=== PATIENT | female | born 1985 | race Caucasian/White ===

== ENCOUNTER → 2017-03-11 | Outpatient (CLI) | payer BC ==
[2013-11-03 15:14] VITALS: BMI 28.8
[~2017-03-11] MED LIST: ACET-1718 PO; AMOX500T10 PO; CETI-176 PO; FERR-53 PO; IBUP800T37 PO; LOR5/325 PO; PRED20TA6 PO; RANI-324 PO; TRIA15CR40 TP
== END ==
LOC: LAB 09:20
PROVIDERS: ATTEND Nurse Practitioner
DX: J02.0 Streptococcal pharyngitis (principal)
CPT/HCPCS: 87070; 87077; 87186

== ENCOUNTER → 2017-03-30 | Outpatient (CLI) | payer BC ==
[2013-11-03 15:14] VITALS: BMI 28.8
== END ==
LOC: LAB 09:05
PROVIDERS: ATTEND Otolaryngology
DX: J02.0 Streptococcal pharyngitis (principal)
CPT/HCPCS: 87070

== ENCOUNTER → 2017-06-28 | Outpatient (CLI) | payer BC ==
[2013-11-03 15:14] VITALS: BMI 28.8
[~2017-06-28] MED LIST changes: +CEPH500C24 PO; -RANI-324 PO; +RANI-366 PO
[2017-06-28 13:58] LABS: PLATELET COUNT, AUTOMATED 230 K/uL (150-450)
== END ==
LOC: LAB 13:32
PROVIDERS: ATTEND Nurse Practitioner Primary Care
DX: R59.1 Generalized enlarged lymph nodes (principal)
CPT/HCPCS: 36415; 85025; 87081

== ENCOUNTER → 2017-08-01 | Outpatient (REF) | payer BC ==
[2013-11-03 15:14] VITALS: BMI 28.8
[2017-08-01 10:51] LABS: PLATELET COUNT, AUTOMATED 191 K/uL (150-450)
== END ==
PROVIDERS: ATTEND Family Medicine
DX: R53.83 Other fatigue (principal); M62.81 Muscle weakness (generalized)
CPT/HCPCS: 82040; 82247; 82310; 82374; 82435; 82565; 82947; 84075; 84132; 84155; 84295; 84443; 84450; 84460; 84520; 85025; 86140; 86788; 86789

== ENCOUNTER → 2017-08-09 | Outpatient (CLI) | payer BC ==
[2013-11-03 15:14] VITALS: BMI 28.8
[2017-08-09 15:10] LABS: PLATELET COUNT, AUTOMATED 356 K/uL (150-450)
== END ==
LOC: LAB 14:52
PROVIDERS: ATTEND Nurse Practitioner Primary Care
DX: R53.81 Other malaise (principal)
CPT/HCPCS: 36415; 82040; 82247; 82310; 82374; 82435; 82565; 82947; 84075; 84132; 84155; 84295; 84450; 84460; 84520; 85025; 86140

== ENCOUNTER → 2017-08-12 | Outpatient (CLI) | payer BC ==
[2013-11-03 15:14] VITALS: BMI 28.8
[~2017-08-12] MED LIST changes: +ALB18R INH; +AZIT-17 PO
--- NOTE | 2017-08-12 15:23 | RADIOLOGY IMAGING REPORT ---
FACILITY: [facility] [place] PATIENT NAME: Yuli Josue : 1985 MR: [id number] V: [id number] EXAM DATE: ORDERING PHYSICIAN: JAYSHREE PATRICK TECHNOLOGIST: Location: [facility] [place] Patient: Yuli Josue : 1985 Visit/Account:[id number] Date of Sevice: 08/12/2017 Exam type: CHEST PA AND LAT History: cough, chest congestion Comparison: None. Findings: There is a patchy infiltrate in the left lower lobe. The right lung is free of consideration. There is no evidence of pleural effusions. The cardiac silhouette is normal in size IMPRESSION: 1. Patchy infiltrate in the left lower lobe consistent with pneumonia Report Dictated By: Alyson Reed MD at 08/12/2017 2:23 PM Report E-Signed By: Alyson Reed MD at 08/12/2017 2:49 PM WSN:[email or web address]
== END ==
LOC: RAD 13:41
PROVIDERS: ATTEND Nurse Practitioner Family
DX: R91.8 Other nonspecific abnormal finding of lung field (principal)
CPT/HCPCS: 71046

== ENCOUNTER → 2017-10-29 | Outpatient (CLI) | payer BC ==
[2013-11-03 15:14] VITALS: BMI 28.8
[~2017-10-29] MED LIST changes: +PREN1TAB44
[2017-10-29 11:25] LABS: PLATELET COUNT, AUTOMATED 240 K/uL (150-450)
== END ==
LOC: LAB 08:25
PROVIDERS: ATTEND Student in an Organized Health Care Education/Training Program
DX: Z34.91 Encounter for supervision of normal pregnancy, unspecified, first trimester (principal)
CPT/HCPCS: 36415; 81001; 85025; 86592; 86703; 86762; 86850; 86900; 86901; 87088; 87340

== ENCOUNTER → 2018-01-06 | Outpatient (CLI) | payer BC ==
[2013-11-03 15:14] VITALS: BMI 28.8
--- NOTE | 2018-01-06 16:27 | RADIOLOGY IMAGING REPORT ---
[place] [facility] [place]: Yuli Josue : 1985 MR: [id number] V: [id number] EXAM DATE: ORDERING PHYSICIAN: BONY EDWARDS TECHNOLOGIST: Location: [facility] [place] Patient: Yuli Josue : 1985 Visit/Account:[id number] Date of Sevice: 01/06/2018 EXAMINATION: Transabdominal OB Ultrasound >14 wks with Anatomic Survey 01/06/2018 9:00 AM History: anatomical survey COMPARISON: None FINDINGS: Intrauterine gestations: one presentation: Variable heart rate: 152 bpm Amniotic fluid index: 13.5 cm Largest amniotic fluid pocket 3.9 cm Placenta: Posterior without previa. Placental cord insertion is not well-defined. Uterus: gravid, otherwise normal Maternal adnexa: negative Cervix: closed Gestational Parameters: BPD: 4.5 cm 19 weeks 5 days , 30th percentile HC: 17.7 cm 20 weeks 2 days , 43rd percentile AC: 15.1 cm 20 weeks 3 days , 51st percentile FL: 3.2 cm 20 weeks 1 day , 39th percentile Average ultrasound age (AUA): 20 weeks 1 day Estimated gestational age by LMP: 20 weeks 1 day Estimated weight (EFW): 338 grams +/- 50 grams EFW for LMP percentile: 48 Anatomic Survey: Intracranial structures, nose and lips, 4-chamber heart and outflow tracts, stomach, kidneys, urinary bladder, spine, 3-vessel cord and cord insertion are unremarkable. Two upper and two lower extremiti es visualized. IMPRESSION: 1. Single live intrauterine gestation; estimated ultrasound age 20 weeks 1 day (ARDEN 05/25/2018) which m atches clinical dates. 2. Unremarkable anatomic survey. Report Dictated By: Fito Bernal MD at 01/06/2018 4:17 PM Report E-Signed By: Fito Bernal MD at 01/06/2018 4:22 PM WSN:[email or web address]
== END ==
LOC: RAD 08:55
PROVIDERS: ATTEND Student in an Organized Health Care Education/Training Program
DX: Z34.92 Encounter for supervision of normal pregnancy, unspecified, second trimester (principal); Z3A.20 20 weeks gestation of pregnancy

== ENCOUNTER → 2018-03-03 | Outpatient (CLI) | payer BC ==
[2013-11-03 15:14] VITALS: BMI 28.8
[~2018-03-03] MED LIST changes: +DIPH0.5D12 IM
[2018-03-03 10:04] LABS: PLATELET COUNT, AUTOMATED 164 K/uL (150-450)
== END ==
LOC: LAB 07:59
PROVIDERS: ATTEND Student in an Organized Health Care Education/Training Program
DX: Z34.92 Encounter for supervision of normal pregnancy, unspecified, second trimester (principal)
CPT/HCPCS: 36415; 82950; 85025

== ENCOUNTER → 2018-04-26 | Outpatient (CLI) | payer BC ==
[2013-11-03 15:14] VITALS: BMI 28.8
== END ==
LOC: LAB 08:51
PROVIDERS: ATTEND Student in an Organized Health Care Education/Training Program
DX: Z36.85 Encounter for antenatal screening for Streptococcus B (principal)
CPT/HCPCS: 87081

== ENCOUNTER 2018-05-30 15:42 | Inpatient (IN) | payer BC ==
[~2018-05-30] VITALS: Ht 170.2 cm; Wt 85.7 kg
[~2018-05-30 15:42] MED LIST changes: -DIPH0.5D12 IM; +DIPH0.5S2 IM
[2018-05-30 16:40] VITALS: BP 120/66; Ht 170.2 cm; Wt 85.7 kg
[2018-05-30] MEDS ORDERED: FAMOTIDINE(*) 20MG/50ML PREMIX 50 ML IVPB PRN (20:54)
[2018-05-30] MEDS ORDERED: ceFAZolin(*) 2GM/D5W 50ML 50 ML IVPB PRN (20:54)
[2018-05-30] MEDS ORDERED: OXYTOCIN 30 UNIT/D5LR 500 ML 500 ML IV PRN (20:54)
[2018-05-30] MEDS ORDERED: fentaNYL CITR 100 MCG/2 ML AMP IVP PRN (20:55)
[2018-05-30] MEDS ORDERED: LIDOCAINE 1% LOCAL 300 MG/30ML INJ PRN (20:55)
[2018-05-30] MEDS ORDERED: METOCLOPRAMIDE 10 MG/2 ML SDV IVP PRN (20:55)
[2018-05-30 21:32] LABS: PLATELET COUNT, AUTOMATED 172 K/uL (150-450)
--- NOTE | 2018-05-30 22:27 | History & Physical ---
History of Present Illness Age of Patient: 33 : 6 Para or TPAL: 5 EDC per U/S: May 25, 2018 Estimated Gestational Age: 40.5 Chief Complaint Contractions History of Present Illness Pt is a 33 y/o @ 40-5/7 wga female by a 9 wk sono who presents to L&D with a chief complaint of painful contractions. Pt reports her contractions have been happening all night. Reports contractions every 5 minutes. No loss of amniotic fluid. No vaginal bleeding. Good movement. History Patient's Blood Type: A Positive Rubella Status: Immune Group B Strep Screen: Negative Obstetrical History: Prior c/s X 1 X 4. Past Medical History: Non contributory Allergies: Uncoded Allergies: Hayfever (Allergy, Mild, 03/03/17) Social History: Denies X 3 Family History: FH: cancer Grandparent FH: diabetes mellitus Grandparent FH: heart disease Grandparent FH: stroke Grandparent Med Rec Home Meds Reported Medications Vit No.124/Iron/FA ( Vitamin Tablet) Unknown Strength Tablet 10/29/17 Review of Systems All Systems Reviewed/Normal: Yes, Except as Noted Constitutional: No Fever, No Weight Loss, No Weight Gain, No Chills, No Night Sweats, No Other Neurological: No Syncope, No Confusion, No Weakness, No Dizziness, No Slurred Speech, No Other Eyes: No Vision Change, No Loss of Vision, No Photophobia, No Other ENT: No Hearing Loss, No Sinus Congestion, No Sore Throat, No Ear Ache, No Tinnitus, No Other Cardiovascular: No Chest Pain, No Palpitations, No Orthostatic Hypotension, No Other Respiratory: No Shortness of Breath, No Cough, No Wheezing, No Other Gastrointestinal: No Nausea, No Vomiting, No Diarrhea, No Dysphagia, No Constipation, No Early Satiety, No Hematemesis, No Hematochezia, No Melena, No Abdominal Pain, No Other Genitourinary: No Dysuria, No Hematuria, No Urinary Incontinence, No Other Musculoskeletal: No Pain, No Sprain, No Strain, No Impaired Mobility, No Other Psychiatric: No Depression, No Anxiety, No Other Exam General Exam Vital Signs Vital Signs Date Time Temp Pulse Resp B/P (MAP) Pulse Ox O2 Delivery O2 Flow Rate FiO2 05/30/18 16:40 98.2 82 14 120/66 (84) 95 Room Air General Apperance: Alert/Awake/No Acute Distress Neuro: No Gross deficits Eyes: Normal Extraocular Movement & Vison, PERRLA ENT: Normal Cardiovascular: Regular Rate and Rhythm Respiratory: No Respiratory Distress Abdomen: Soft, Non-Tender, Non-Distended : Normal Musculoskeletal: No Weakness/Pain Extremities: No Cyanosis,Clubbing or Edema Integumentary: Skin Intact without Lesions or Rash Psychological: Alert & Oriented X3, Appropriate Mood & Affect Vaginal Discharge/Fluid?: Clear Fluid (with amniotomy) Cervical Dialation: 4 Cervical Effacement (%): 70 Cervical Consistency: Soft Cervical Position: Anterior Station: -2 Presentation: Vertex Uterine Contractions(Q min): 5 Uterine Contraction Strength: Mild UC Resting Tone: Soft Fetus Feeling Movement?: Yes Heart Tones: 130 Heart Tone Variabilty: Moderate FHT Accelerations: 15X15 FHT Decelerations: None FHT Category: I Medical Decision Making Data Points Result Diagram: 05/30/182110 Pre-Admit Course Medical Record Review: Yes VTE Prophylasis: Adult Deep Vein Thrombosis/Pulmonary: No Assessment and Plan 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 Expect patient to transition to active labor. If need be will augment with Oxytocin. (2) 40 weeks gestation of Status: Acute (3) Hx successful (vaginal after ), currently Status: Acute (4) Active labor at term Status: Resolved BONY EDWARDS DO May 30, 2018 22:27
[2018-05-31] MEDS: LR(*) 1000 ML BAG 1,000 ML IV PRN ×2 (02:00→06:00)
--- NOTE | 2018-05-31 07:37 | Labor Progress Note ---
Labor Subjective Progress Notes Subjective Starting to get more and more pressure. Feeling Movement?: Yes Vaginal Discharge/Fluid: Clear Fluid Labor Pain: Mild Neurological: No Headache, No Other Eyes: No Visual Disturbances Labor Objective Vital Signs Vital Signs Date Time Temp Pulse Resp B/P (MAP) Pulse Ox O2 Delivery O2 Flow Rate FiO2 05/30/18 16:40 98.2 82 14 120/66 (84) 95 Room Air Vaginal Discharge/Fluid?: Clear Fluid Cervical Dialation: 6 Cervical Effacement (%): 80 Cervical Consistency: Soft Cervical Position: Mid Presentation: Vertex Uterine Contractions(Q min): 3 Uterine Contraction Strength: Moderate Fetus Heart Tones: 130 Heart Tone Variabilty: Moderate FHT Accelerations: 15X15 FHT Decelerations: None FHT Category: I Other Result Diagram: 05/30/182110 Assessment and Plan Problems: (1) Desires (vaginal after ) trial Status: Acute (2) 40 weeks gestation of Status: Acute (3) Hx successful (vaginal after ), currently Status: Acute Assessment & Plan: Now on Oxytocin. Expect patient to progress to complete. (4) Active labor at term Status: Resolved BONY EWDARDS DO May 31, 2018 07:37
[2018-05-31] MEDS ORDERED: MAGNESIUM HYDROXIDE* 30ML UDCP PO PRN (09:05)
[2018-05-31] MEDS ORDERED: LANOLIN OINT 7 GM TUBE TP PRN (09:05)
[2018-05-31] MEDS ORDERED: BENZOCAINE 20% 60 ML BTL TP PRN (09:05)
[2018-05-31] MEDS ORDERED: HYDROCORTISONE 2.5% CR 30GM TB PR PRN (09:05)
[2018-05-31] MEDS ORDERED: ACETAMINOPHEN 325 MG TAB PO PRN (09:05)
[2018-05-31] MEDS ORDERED: GLYCERIN/WITCH HAZEL LEAF 1 PK TP PRN (09:05)
[2018-05-31] MEDS ORDERED: IBUPROFEN 800 MG TAB PO SCH (09:15)
--- NOTE | 2018-05-31 09:20 | OB/GYN Progress Note ---
OB Subjective Progress Notes Subjective Pt feels much better now, immediately after delivery. GI: NEG Nausea, NEG Vomiting, NEG Flatus, NEG Bowel Movement : Voiding Well, Vaginal Bleeding, Moderate Pain: Mild, Tolerating PO Pain Meds Neurological: No Headache, No Other OB Objective Physical Exam Vital Signs Date Time Temp Pulse Resp B/P (MAP) Pulse Ox O2 Delivery O2 Flow Rate FiO2 05/30/18 16:40 98.2 82 14 120/66 (84) 95 Room Air General Appearance: Alert/Awake/No Acute Distress Neurological: No Gross deficits Eyes: Normal Extraocular Movement & Vison, PERRLA Respiratory: No Respiratory Distress Extremities: No Cyanosis,Clubbing or Edema Integumentary: Skin Intact without Lesions or Rash Psychological: Alert & Oriented X3, Appropriate Mood & Affect Result Diagram: 05/30/182110 Assessment and Plan 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 I attended delivery performed by Apple Alonzo CNM. Live born male infant. Bleeding minimal post . Good uterine tone. BONY EDWARDS DO May 31, 2018 09:20
--- NOTE | 2018-05-31 09:52 | OB Delivery Note ---
Delivery Note Vaginal Delivery Type: Spont. Vaginal Delivery Delivery Date: May 31, 2018 Estimated Gestational Age(wks): 40.6 Delivery Anesthesia: Other (non pharm methods) Infant Sex: Male Infant Weight (gms): [address] Apgars: 1 Minute, 5 Minute Delivery Complications: Laceration (1st degree perineal, hemostatic so no repair), Nuchal Cord Notes: MZ is a 33 year old G6 now G6 with OOC on 05/30/18 at 0243. She has a history of delivery for her first baby and 4 successful VBACs after. Pt was admitted to the family care unit on 05/30/18 in early labor. Cervical exam on admission was 70/-2. She had AROM on 05/30/18 at 2214 for a small amount clear fluid. Pt was GBS negative. FHR was CAT I primarily throughout first stage. Pt utilized controlled breathing and position changes primarily for pain management. Pt was completely dilated on 05/31/18 @ 0828 and pt began pushing spontaneously at that time with excellent maternal effort and descent. . At 0842 pt had a NSVB of live male infant APGARS 6/9 weighing 3810g. The head delivered spontaneously in the OA position and restituted ANGELINA with one nuchal cord that was easily reduced at the perineum. The anterior shoulder was delivered a traumatically and the posterior shoulder followed. Body delivered easily. Face was wiped and then passed through maternal legs to the maternal abdomen. The was dried and stimulated and noted to have a slow spontaneous cry, but spontaneous movement of all 4 extremities. Baby continued to be stimulated and noted to have an increase in cry, but nursing wanted to evaluate at the warmer , so the cord was then was clamped X 2 by CNM after 3 minutes and cut by patient's spouse. Mother was in hands and knees position for delivery. At 0850 the placenta and membranes delivered spontaneous and intact with a 3 vessel cord after gentle downward traction and maternal push. 30 units of Pitocin was placed in 500cc IV to firm the uterus and started immediately after placenta delivery. Upon inspection of the perineum a first degree laceration was noted. Hemostasis observed. No repair necessary. EBL 300 with fundus firm with minimal bleeding. Baby was skin to skin with mother when I left and they were in stable condition. "I personally examined the patient and there are no unintended foreign objects in the vagina, and all sponge, lap, and needle counts were correct." Ilda Alonzo CNM was present throughout the entire delivery with Dr. Eliel Pierce in house for backup ILDA ALONZO CNM May 31, 2018 09:52
[2018-05-31 12:49] VITALS: BP 119/59
[2018-05-31] MEDS: IBUPROFEN 800 MG TAB PO SCH (18:54)
[2018-05-31 19:00] VITALS: BP 122/61
[2018-05-31] MEDS ORDERED: DOCUSATE CALCIUM 240 MG CAP PO SCH (21:00)
[2018-05-31 22:46] VITALS: BP 128/61
[2018-06-01 02:33] VITALS: BP 114/64
[2018-06-01] MEDS: IBUPROFEN 800 MG TAB PO SCH (02:35)
[2018-06-01 08:00] VITALS: BP 118/65
--- NOTE | 2018-06-01 09:39 | OB/GYN Progress Note ---
OB Subjective Progress Notes Subjective Pt is doing good this morning. Reports pain well controlled with Ibuprofen. Tolerating regular diet. Ambulatory. Voiding with out any difficulty. GI: NEG Nausea, NEG Vomiting, NEG Flatus, NEG Bowel Movement : Voiding Well Pain: Mild Neurological: No Headache, No Other Eyes: No Visual Disturbances OB Objective Physical Exam Vital Signs Date Time Temp Pulse Resp B/P (MAP) Pulse Ox O2 Delivery O2 Flow Rate FiO2 06/01/18 08:00 97.5 72 118/65 (82) 96 Room Air 06/01/18 02:33 16 Intake and Output 06/01/18 07:00 Intake Total 980 ml Balance 980 ml Intake Oral 180 ml IV Total 800 ml # Voids 2 General Appearance: Alert/Awake/No Acute Distress Neurological: No Gross deficits Eyes: Normal Extraocular Movement & Vison, PERRLA ENT: Normal Neck: No Masses Cardiovascular: Normal Rhythm & Peripheral Pulses, Regular Rate and Rhythm Respiratory: No Respiratory Distress Abdomen: Soft, Non-Tender, Non-Distended, Fundus Firm Extremities: No Cyanosis,Clubbing or Edema Integumentary: Skin Intact without Lesions or Rash Psychological: Alert & Oriented X3, Appropriate Mood & Affect Result Diagram: 06/01/18 0543 Assessment and Plan 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 FOllow up in 2 weeks. Precautions given. (3) Hx successful (vaginal after ), currently Status: Acute (4) Active labor at term Status: Resolved BONY EDWARDS DO Jun 01, 2018 09:39
[2018-06-01] MEDS ORDERED: IBUP800T37 PO (09:40)
--- NOTE | 2018-06-01 09:44 | OB/GYN Discharge Summary ---
Discharge Summary Reason for Hosp/Final Diag: (1) Desires (vaginal after ) trial Status: Resolved (2) 40 weeks gestation of Status: Resolved (3) Hx successful (vaginal after ), currently Status: Acute Hospital Course & Plan: P presented in labor desiring a TOLAC. Pt underwent amniotomy and changed from 4-6 cm. She did require oxytocin to get to complete after about 6 hours with no cervical change. Pt delivered with no pain medications over an IP. See delivery note for details of procedure. Pt was ambulatory and meeting post goals. (4) Active labor at term Status: Resolved Lates Vital Signs Vital Signs Date Time Temp Pulse Resp B/P (MAP) Pulse Ox O2 Delivery O2 Flow Rate FiO2 06/01/18 08:00 97.5 72 118/65 (82) 96 Room Air 06/01/18 02:33 16 Weight (Pounds): 189 Result Diagram: 06/01/18 0543 Condition: Improved Discharge: Home Home Meds Reported Medications Vit No.124/Iron/FA ( Vitamin Tablet) Unknown Strength Tablet 10/29/17 Follow up with: [facility] [phone], Dr. Pierce [phone] Follow up in: 6 wks PP or PO, 2 wks PO Discharge Diet: As Tolerates, Resume Prior Admit Diet, Increase Fluid Intake Discharge Activity: As Tolerates, Pelvic Rest BONY PIERCE DO Jun 01, 2018 09:44
[2018-06-02] MEDS ORDERED: INFLUENZA VIRUS VAC 0.5ML SYR IM ONLY ONE (09:00)
[2018-06-02] MEDS ORDERED: MEASLES,MUMP,RUBELLA VAC 0.5ML SUBQ ONE (09:00)
[2018-06-02] MEDS ORDERED: DIPHTH/TETANUS/ACEL. PERTUSSIS IM ONLY ONE (09:00)
== END 2018-06-01 11:05 | disposition home or self-care (01) | DRG 807 ==
LOC: OB 15:42
PROVIDERS: ADMIT Student in an Organized Health Care Education/Training Program; ATTEND Student in an Organized Health Care Education/Training Program
PROC: 10907ZC Drainage of Amniotic Fluid, Therapeutic from Products of Conception, Via Natural or Artificial Opening (ICD-10-PCS; principal; 2018-05-30)
PROC: 10E0XZZ Delivery of Products of Conception, External Approach (ICD-10-PCS; 2018-05-31)
DX: O62.9 Abnormality of forces of labor, unspecified (principal); Z37.0 Single live birth; Z3A.40 40 weeks gestation of pregnancy; O34.211 Maternal care for low transverse scar from previous cesarean delivery; N85.8 Other specified noninflammatory disorders of uterus; O70.0 First degree perineal laceration during delivery; O69.81X0 Labor and delivery complicated by cord around neck, without compression, not applicable or unspecified
CPT/HCPCS: 36415; 85025; 85027; 86850; 86900; 86901; J7120